=== PATIENT | male | born 1945 | race Caucasian/White ===

== ENCOUNTER 2018-04-05 05:58 | Inpatient (IN) | payer MEDICARE, MEDICAID ==
[2018-04-05] VITALS (15 sets, daily range): BP systolic 113–154; BP diastolic 62–90
[~2018-04-05] VITALS: Ht 182.9 cm; Wt 86.3 kg
--- OUTSIDE RECORDS SUMMARY | 2018-04-05 07:54 | XMS REPORT ---
Author Author SWAPNA SCHMIDT Organization [facility] Address [address] [place] [address] Care Team Providers Care Audio Experience Expert Name Role Phone SWAPNA SCHMIDT Unavailable PROBLEMS Unknown Problems ALLERGIES No Known Allergies ENCOUNTERS Encounter Location Date Diagnosis [facility] [id number] [place] [phone] Nov, Dental examination Z01.20 ; Periodontitis K05.30 ; Encounter for prophylactic administration of fluoride Z29.3 and Caries K02.9 [facility] [id number] [place] [phone] Jun, Dental examination Z01.20 [facility] [id number] [place] [address] [phone] Jan, Encounter for dental examination Z01.20 [facility] [id number] [place] [address] [phone] Sep, Dental examination V72.2 IMMUNIZATIONS No Known Immunizations SOCIAL HISTORY Never Assessed REASON FOR VISIT Establish Care PLAN OF CARE Activity Details Follow Up First Available Reason:Restorative VITAL SIGNS Heart Rate 51 bpm 2017-12-25 Blood pressure systolic 131 mmHg 2017-12-25 Blood pressure diastolic 65 mmHg 2017-12-25 MEDICATIONS Medication Instructions Dosage Frequency Start Date End Date Duration Status Terbinafine HCl 250 MG Orally Once a day 1 tablet 24h Not-Taking Spironolactone 25 MG Orally Twice a day 1 tablet 12h Active Propranolol HCl 20 MG Orally Twice a day 1 tablet 12h Active Docusate Sodium Active Triamterene 50 MG Orally Once a day 1 capsule 24h Not-Taking Ropinirole HCl Active Phenytoin Active Loratadine Allergy Relief 10 MG Orally Once a day 1 tablet on the tongue and allow to dissolve 24h Active Spironolactone Active RESULTS No Results PROCEDURES Procedure Date Ordered Result Body Site PERIODIC ORAL EXAMINATION Dec 25, 2017 INTRAORL-PERIAPICAL 1 FILM 38095 Dec 25, 2017 INTRAORL-PERIAPICAL EA ADD FILM Dec 25, 2017 INTRAORL-PERIAPICAL EA ADD FILM Dec 25, 2017 Periodontal maint procedures Dec 25, 2017 BITEWINGS - FOUR FILMS Dec 25, 2017 INSTRUCTIONS MEDICATIONS ADMINISTERED No Known Medications MEDICAL (GENERAL) HISTORY Type Description Date Medical History High Blood Pressure Medical History Back Trouble Medical History Leg Cramps Surgical History Back Surgery 08/2013 Hospitalization History Hospitalization for surgery only
--- OUTSIDE RECORDS SUMMARY | 2018-04-05 07:55 | XMS REPORT ---
Author Author SWAPNA SCHMIDT eClinicalWorks Address Unknown Phone Unavailable Care Team Providers Care Fisher Trot Line Name Role Phone SWAPNA SCHMIDT CP Unavailable Allergies, Adverse Reactions, Alerts Substance Reaction Event Type N.K.D.A. Info Not Available Non Drug Allergy Problems Problem Type Condition Code Onset Dates Condition Status Assessment Encounter for dental examination Z01.20 Active Problem Encounter for dental examination Z01.20 Active Medications Medication Code System Code Instructions Start Date End Date Status Dosage Propranolol HCl [facility] [address]-20 20 MG Orally Twice a day [address] [facility] [address]-87 25 MG Orally Twice a day [address] [facility] [address]-89 50 MG Orally Once a day 1 capsule [address]ine Allergy Relief [facility] [address] 10 MG Orally Once a day 1 tablet on the tongue and allow to dissolve Terbinafine HCl [facility] [address]-36 250 MG Orally Once a day 1 tablet Procedures Procedure Coding System Code Date Periodontal maint procedures CPT-4 D4910 Feb 20, 2015 TOPICAL FLUORIDE VARNISH CPT-4 D1206 Feb 20, 2015 PERIODIC ORAL EXAMINATION CPT-4 D0120 Feb 20, 2015 Vital Signs Date/Time: Feb 20, 2015 Blood Pressure Diastolic 70 mmHg Blood Pressure Systolic 140 mmHg Cardiac Monitoring Heart Rate 48 bpm Results No Known Results Summary Purpose eClinicalWorks Submission
[2018-04-05] MEDS ORDERED: MILK OF MAGNESIA 400 MG/5 ML 30 ML UDC PO PRN (08:45)
[2018-04-05] MEDS ORDERED: ACETAMINOPHEN 500 MG TAB (TYLENOL) PO PRN (08:45)
[2018-04-05] MEDS ORDERED: ANTACID SUSP 30 ML UDC (MYLANTA) PO PRN (08:45)
[2018-04-05] MEDS ORDERED: ONDANSETRON 4 MG/2 ML (SDV) Z0FRAN IV PRN (08:45)
[2018-04-05] MEDS ORDERED: VANCOMYCIN INJECTION 0.1 MG in NS (IVPB) 250 ML IV SCH (08:45)
[2018-04-05] MEDS ORDERED: PIPERACILLIN/TAZO 4.5 GM/NS 100 ML IV NR ×2 (09:00)
[2018-04-05] MEDS ORDERED: CATHETER FLUSH 10 ML SYR IV PRN (09:00)
[2018-04-05] MEDS ORDERED: ACETAMINOPHEN 325 MG TABLET PO PRN (09:00)
[2018-04-05 09:43] LABS: BUN/CREATININE RATIO 42; CALCIUM 9.2 MG/DL (8.5-10.1); CARBON DIOXIDE 23 MMOL/L (21-32); CHLORIDE 104 MMOL/L (98-107); CREATININE SERUM 1.08 MG/DL (0.60-1.30); GFR ESTIMATED > 60; GLUCOSE 126 MG/DL (70-105); POTASSIUM 4.3 MMOL/L (3.6-5.0); SODIUM 137 MMOL/L (135-145)
--- NOTE | 2018-04-05 09:54 | NUR ---
CR 1.08; CR CR > 60; WT 87 KG; VANCO 1500 MG IV BOLUS THEN 1000 MG IV Q12H; TROUGH AFTER 3RD DOSE
[2018-04-05] MEDS ORDERED: VANCOMYCIN 1500 MG/NS 500 ML IVPB IV NR ×2 (10:00)
[2018-04-05] MEDS ORDERED: RT-ALBUTEROL/IPRATROPIUM 3 ML (DUONEB) VIAL INH PRN (10:00)
--- NOTE | 2018-04-05 12:51 | History & Physical-Hospitalist ---
History of Present Illness HPI/Chief Complaint CC: Altered mental status with increased secretions with pneumonia HPI: This is a 72-year-old white male with a very complicated recent medical history that includes a seizure then had altered mental status and encephalopathy transferred to [place] in [facility] and diagnosed with an encephalopathy that required 6 weeks of medical care in the hospital with feeding tube placement and subsequent intermediate placement 2 days ago. He began having hypoxemia and increased secretions sent to [place] emergency ER and was found to have pneumonia facility acquired. Patient is currently sleeping soundly but cannot really carry on any type of conversation when he is awake and alert. Sister is power of contracts attorney and she is not at the bedside at this current time. Patient needs to be DO NOT RESUSCITATE and hospice candidate and or transferred to some sort of long-term care facility instead of just a intermediate. Source: RN/ Exam Limitations: clinical condition Date Seen 04/05/18 Time Seen by a Provider: 12:00 Attending Physician Richa Mcfarlane MD PCP Sheldon Lundberg MD Referring Physician Date of Admission Apr 05, 2018 at 07:20 Home Medications & Allergies Home Medications Reviewed patient Home Medication Reconciliation performed by pharmacy medication reconciliations dietetic technician and/or nursing. Patients Allergies have been reviewed. Allergies Allergies Coded Allergies No Known Drug Allergies (Unverified04/05/18) Past Gqjvtiu-Ookofz-Ogbacp Hx Past Med/Social Hx: Reviewed Nursing Past Med/Soc Hx, Reviewed and Corrections made Patient Social History Alcohol Use: Denies Use Recreational Drug Use: No Smoking Status: Former Smoker Former Smoker, Quit: Apr 05, 1980 Type Used: Cigarettes, Pipe Physical Abuse Screen: No Sexual Abuse: No Recent Foreign Travel: No Contact w/other who traveled: No Recent Hopitalizations: Yes Seasonal Allergies Seasonal Allergies: No Past Medical History Respiratory: Pneumonia Neurological: Seizure Disorder, Traumatic Brain Injury HEENT: Cataract History of Blood Disorders: No Review of Systems ROS-Unable to Obtain: Unable to ascertain Constitutional: see HPI Physical Exam Physical Exam Vital Signs Vital Signs - First Documented 04/05/18 04/05/18 07:20 10:00 Temp 98.5 Pulse 80 Resp 17 B/P (MAP) 138/88 (105) Pulse Ox 97 O2 Delivery Nasal Cannula O2 Flow Rate 4.00 FiO2 28 Capillary Refill : Height, Weight, BMI Height: 6'0.00" Weight: 192lbs. 9.0oz. 87.982018ob; 26.1 BMI Method: General Appearance: No Apparent Distress, WD/WN, Chronically ill, Other ( Sleeping and semi-unresponsive) Eyes: Bilateral Eye Normal Inspection, Bilateral Eye PERRL Respiratory: No Accessory Muscle Use, No Respiratory Distress, Crackles, Decreased Breath Sounds, Wheezing Cardiovascular: Regular Rate, Rhythm, No Edema, No Gallop, No JVD, No Murmur, Normal Peripheral Pulses Gastrointestinal: Normal Bowel Sounds, No Organomegaly, No Pulsatile Mass, Soft Back: Normal Inspection Extremity: Normal Capillary Refill, Normal Inspection, Non Tender, No Calf Tenderness, No Pedal Edema Skin: Normal Color, Warm/Dry Lymphatic: No Adenopathy Results Results/Procedures Labs Laboratory Tests 04/05/18 09:05 Patient resulted labs reviewed. Assessment/Plan Admission Diagnosis Assessment: Facility acquired pneumonia Encephalopathy with profound residual disability Feeding tube status Seizure disorder Plan: Antibiotics Neb treatments Oxygen Pulmonology evaluation May need bronchoscopy May need long-term care facility Recovery potential bleak Admission Status: Inpatient Order (span 2 midnights) Reason for Inpatient Admission: Severe encephalopathy with facility acquired pneumonia will require 3 days Diagnosis/Problems Diagnosis/Problems (1) Pneumonia Status: Acute Qualifiers: Pneumonia type: due to unspecified organism Laterality: unspecified laterality Lung location: unspecified part of lung Qualified Codes: J18.9 - Pneumonia, unspecified organism (2) Hypoxia Status: Acute (3) PEG (percutaneous endoscopic gastrostomy) status Status: Chronic (4) Encephalopathy chronic Status: Chronic (5) Seizure disorder Status: Chronic Clinical Quality Measures DVT/VTE Risk/Contraindication: Risk Factor Score Per Nursin RFS Level Per Nursing on Admit: 4+=Very High ADARSH MONTANO DO Apr 05, 2018 12:50
[2018-04-05] MEDS ORDERED: BISA10SU58 RC (13:08)
[2018-04-05] MEDS ORDERED: BRIM5DRO OP (13:08)
[2018-04-05] MEDS ORDERED: PHEN125O PO (13:08)
[2018-04-05] MEDS ORDERED: POLY17PO6 PO (13:08)
[2018-04-05] MEDS ORDERED: ATOR40TA PO (13:08)
[2018-04-05] MEDS ORDERED: ACET160L29 PO (13:08)
[2018-04-05] MEDS ORDERED: FAMO-119 PO (13:08)
[2018-04-05] MEDS ORDERED: ASPI-999 PO (13:08)
[2018-04-05] MEDS ORDERED: LATA2.5D19 OP (13:08)
[2018-04-05] MEDS ORDERED: GUAI100L13 PO (13:08)
[2018-04-05] MEDS ORDERED: IPRA3AMP31 IH (13:08)
[2018-04-05] MEDS ORDERED: CATHETER FLUSH 10 ML SYR IV SCH (14:00)
[2018-04-05] MEDS: RT-ALBUTEROL/IPRATROPIUM 3 ML (DUONEB) VIAL INH SCH ×2 (14:01→18:40)
[2018-04-05] MEDS ORDERED: PIPERACILLIN SODIUM/TAZOBACTAM 4.5 GM in NS (IVPB) 100 ML IV SCH (15:00)
--- NOTE | 2018-04-05 17:56 | Pulmonary Consultation ---
History of Present Illness History of Present Illness Date of Consultation 04/05/18 17:51 Date of Admission Allergies and Home Medications Allergies Coded Allergies: No Known Drug Allergies (Unverified , 04/05/18) Home Medications Acetaminophen 160 Mg/5 Ml Liquid, 650 MG PO Q6H, (Reported) Aspirin 81 Mg Tab.chew, 324 MG PO DAILY, (Reported) Atorvastatin Calcium 40 Mg Tablet, 40 MG PO HS, (Reported) Bisacodyl 10 Mg Supp.rect, 10 MG RC DAILY, (Reported) Brimonidine Tartrate/Timolol 5 Ml Drops, 5 ML OP BID, (Reported) Famotidine 20 Mg Tablet, 20 MG PO DAILY, (Reported) Guaifenesin 100 Mg/5 Ml Liquid, 100 MG PO Q6H, (Reported) Ipratropium/Albuterol Sulfate 3 Ml Ampul.neb, 3 ML IH Q4H PRN for SHORTNESS OF BREATH, (Reported) Latanoprost 2.5 Ml Drops, 2.5 ML OP HS, (Reported) Phenytoin 125 Mg/5 Ml Oral.susp, 150 MG PO Q8H, (Reported) Polyethylene Glycol 3350 17 Gm Powd.pack, 17 GM PO DAILY PRN for CONSTIPATION- 1ST LINE, (Reported) Past Jwjndkl-Zhmjvx-Tvdjlv Hx Past Med/Social Hx: Reviewed Nursing Past Med/Soc Hx, Reviewed and Corrections made Patient Social History Alcohol Use: Denies Use Recreational Drug Use: No Smoking Status: Former Smoker Type Used: Cigarettes, Pipe Former Smoker, Quit: Apr 05, 1980 Recent Foreign Travel: No Contact w/Someone Who Travel: No Recent Hopitalizations: Yes Seasonal Allergies Seasonal Allergies: No Past Medical History Respiratory: No (FORMER SMOKER, QUIT 1980) Cardiac: Yes Neurological: Yes Seizure Disorder, Traumatic Brain Injury Genitourinary: No Gastrointestinal: No Endocrine: No HEENT: Yes Cataract Cancer: Yes Psychosocial: No Integumentary: No Blood Disorders: No Sepsis Event Evaluation Height, Weight, BMI Height: 6'0.00" Weight: 192lbs. 9.0oz. 87.556360dr; 26.1 BMI Method: Exam Exam Vital Signs Date Time Temp Pulse Resp B/P (MAP) Pulse Ox O2 Delivery O2 Flow Rate FiO2 04/05/18 15:00 71 17 124/62 (82) 95 Nasal Cannula 2.00 04/05/18 14:02 98 Nasal Cannula 2.00 04/05/18 14:00 68 18 113/67 (82) 99 Nasal Cannula 2.00 04/05/18 13:00 73 20 124/71 (88) 99 Nasal Cannula 2.00 04/05/18 12:59 75 04/05/18 12:00 Nasal Cannula 7.00 04/05/18 12:00 82 17 128/70 (89) 95 Nasal Cannula 2.00 04/05/18 12:00 98.5 04/05/18 11:00 82 20 143/79 (100) 93 Nasal Cannula 2.00 04/05/18 10:00 82 92 28 04/05/18 10:00 82 21 140/80 (100) 92 Nasal Cannula 2.00 04/05/18 09:00 81 33 154/73 (100) 93 Nasal Cannula 4.00 04/05/18 08:00 81 27 134/68 (90) 98 Nasal Cannula 4.00 04/05/18 08:00 Nasal Cannula 4.00 04/05/18 07:45 79 36 140/71 (94) 97 Nasal Cannula 4.00 04/05/18 07:30 80 19 138/77 (97) 97 Nasal Cannula 4.00 04/05/18 07:26 80 04/05/18 07:20 98.5 04/05/18 07:20 80 17 138/88 (105) 97 Nasal Cannula 4.00 Height & Weight Height: 6'0.00" Weight: 192lbs. 9.0oz. 87.877982jv; 26.1 BMI Method: General Appearance: No Apparent Distress, WD/WN, Chronically ill, Other ( Sleeping and semi-unresponsive) Respiratory: No Accessory Muscle Use, No Respiratory Distress, Crackles, Decreased Breath Sounds, Wheezing Cardiovascular: Regular Rate, Rhythm, No Edema, No Gallop, No JVD, No Murmur, Normal Peripheral Pulses Extremity: Normal Capillary Refill, Normal Inspection, Non Tender, No Calf Tenderness, No Pedal Edema Skin: Normal Color, Warm/Dry Lymphatic: No Adenopathy Results Lab Laboratory Tests 04/05/18 09:05 Assessment/Plan Assessment/Plan Pneumonia probable aspiration pneumonia. PT can not protect his airway secondary to recent CVA -Zosyn and vanco Acute respiratory failure secondary to Hypoxia -Oxygen Hx of CVA s/p PEG tube Debility/dysphonia Chronic encephalopathy hx of seizures. After discussion with sister who is DOPA and explaining all options from full code to comfort care. She has decided to make him comfort care only. She states family has already been talking about making him hospice care secondary to severe debility s/p CVA. LACEY CAO DO Apr 05, 2018 17:55
[2018-04-05] MEDS ORDERED: GLYCOPYRROLATE 0.2 MG/ML (ROBINUL) 2 ML VIAL IV PRN (18:00)
[2018-04-05] MEDS ORDERED: ONDANSETRON 4 MG/2 ML (SDV) Z0FRAN IVP PRN (18:00)
[2018-04-05] MEDS ORDERED: SALIVA STIMULANT MOUTH SPRAY (BIOTENE) 1.5 OZ MM PRN (18:00)
[2018-04-05] MEDS ORDERED: ARTIFICAL TEARS 0.4 ML UNIT DOSE (REFRESH PLUS) OU PRN (18:00)
[2018-04-05] MEDS ORDERED: ATROPINE 1% OPHTHALMIC SOLN 2 ML SL PRN (18:00)
[2018-04-05] MEDS ORDERED: PROMETHAZINE INJ 25 MG/ML (PHENERGAN) AMP IVP PRN (18:00)
[2018-04-05] MEDS ORDERED: LORazepam INJ 2 MG/ML (ATIVAN) VIAL IVP PRN (18:45)
[2018-04-05] MEDS ORDERED: morphine INJ 4 MG/ML 1 ML (VIAL/SYRINGE) IVP PRN (18:45)
[2018-04-05] MEDS ORDERED: VANCOMYCIN 1 GM/NS 250 ML IVPB IV SCH ×2 (22:00)
--- NOTE | 2018-04-06 06:56 | Pulmonary Progress Note ---
Subjective Time Seen by a Provider: 06:56 Subjective/Events-last exam PT appears comfortable on MANAGER INSTRUMENTATION. Sepsis Event Evaluation Height, Weight, BMI Height: 6'0.00" Weight: 190lbs. 5.0oz. 86.557801mw; 26.1 BMI Method: Exam Exam Vital Signs Date Time Temp Pulse Resp B/P (MAP) Pulse Ox O2 Delivery O2 Flow Rate FiO2 04/06/18 06:28 Room Air 04/05/18 20:00 Room Air 04/05/18 20:00 75 18 139/90 (106) 88 Room Air 04/05/18 18:58 73 04/05/18 18:40 97 Nasal Cannula 2.00 04/05/18 18:00 73 24 149/80 (103) 97 Nasal Cannula 2.00 04/05/18 17:00 67 26 117/63 (81) 93 Nasal Cannula 2.00 04/05/18 16:00 Nasal Cannula 2.00 04/05/18 16:00 75 25 131/67 (88) 96 Nasal Cannula 2.00 04/05/18 15:00 71 17 124/62 (82) 95 Nasal Cannula 2.00 04/05/18 14:02 98 Nasal Cannula 2.00 04/05/18 14:00 68 18 113/67 (82) 99 Nasal Cannula 2.00 04/05/18 13:00 73 20 124/71 (88) 99 Nasal Cannula 2.00 04/05/18 12:59 75 04/05/18 12:00 Nasal Cannula 7.00 04/05/18 12:00 82 17 128/70 (89) 95 Nasal Cannula 2.00 04/05/18 12:00 98.5 04/05/18 11:00 82 20 143/79 (100) 93 Nasal Cannula 2.00 04/05/18 10:00 82 92 28 04/05/18 10:00 82 21 140/80 (100) 92 Nasal Cannula 2.00 04/05/18 09:00 81 33 154/73 (100) 93 Nasal Cannula 4.00 04/05/18 08:00 81 27 134/68 (90) 98 Nasal Cannula 4.00 04/05/18 08:00 Nasal Cannula 4.00 04/05/18 07:45 79 36 140/71 (94) 97 Nasal Cannula 4.00 04/05/18 07:30 80 19 138/77 (97) 97 Nasal Cannula 4.00 04/05/18 07:26 80 04/05/18 07:20 98.5 04/05/18 07:20 80 17 138/88 (105) 97 Nasal Cannula 4.00 I & O 04/06/18 06:59 Intake Total 0 ml Output Total 1215 ml Balance -1215 ml Height & Weight Height: 6'0.00" Weight: 190lbs. 5.0oz. 86.556784qh; 26.1 BMI Method: General Appearance: No Apparent Distress, WD/WN, Chronically ill, Other ( Sleeping and semi-unresponsive) Respiratory: No Accessory Muscle Use, No Respiratory Distress, Crackles, Decreased Breath Sounds, Wheezing Cardiovascular: Regular Rate, Rhythm, No Edema, No Gallop, No JVD, No Murmur, Normal Peripheral Pulses Extremity: Normal Capillary Refill, Normal Inspection, Non Tender, No Calf Tenderness, No Pedal Edema Skin: Normal Color, Warm/Dry Lymphatic: No Adenopathy Results Lab Laboratory Tests 04/05/18 09:05 Assessment/Plan Assessment/Plan Pneumonia probably aspiration acute respiratory failure with Hypoxia Hx of CVA s/p PEG tube Debility/dysphonia secondary to recent CVA Chronic encephalopathy hx of seizures. Pt is now comfort care per sister who is DOPA. PT appears very comfortable currently. Will transfer to 4th floor. LACEY CAO DO Apr 06, 2018 06:56
--- NOTE | 2018-04-06 07:13 | NUR ---
RECEIVED PATIENT SLEEPING COMFORTABLY WITH NO S/S OF DISTRESS. SAFETY PRECAUTIONS IN PLACE. MAINTAINING POC WITH COMFORT CARE MEASURES.
[2018-04-06] MEDS ORDERED: FLU QUADRIvalent (5+ YOA) 2018-2019 (AFLURIA) 0.5 ML IM ONE (10:45)
--- NOTE | 2018-04-06 11:05 | Progress Note-Hospitalist ---
Subjective HPI/CC On Admission Date Seen by Provider: Apr 06, 2018 Time Seen by Provider: 10:15 CC: Altered mental status with increased secretions with pneumonia HPI: This is a 72-year-old white male with a very complicated recent medical history that includes a seizure then had altered mental status and encephalopathy transferred to [place] in [facility] and diagnosed with an encephalopathy that required 6 weeks of medical care in the hospital with feeding tube placement and subsequent fci placement 2 days ago. He began having hypoxemia and increased secretions sent to [place] emergency ER and was found to have pneumonia facility acquired. Patient is currently sleeping soundly but cannot really carry on any type of conversation when he is awake and alert. Sister is power of art museum docent and she is not at the bedside at this current time. Patient needs to be DO NOT RESUSCITATE and hospice candidate and or transferred to some sort of long-term care facility instead of just a fci. Subjective/Events-last exam Patient now comfort care DO NOT RESUSCITATE Reasonable plan of care Palliative care nurse consulted for hospice enrollment and disposition Objective Exam Vital Signs Vital Signs Date Time Temp Pulse Resp B/P (MAP) Pulse Ox O2 Delivery O2 Flow Rate FiO2 04/06/18 06:28 Room Air 04/05/18 20:00 75 18 139/90 (106) 88 04/05/18 18:40 2.00 04/05/18 12:00 98.5 04/05/18 10:00 28 Capillary Refill : General Appearance: No Apparent Distress, WD/WN, Chronically ill, Other ( Unresponsive) Results/Procedures Lab Patient resulted labs reviewed. Assessment/Plan Assessment and Plan Assess & Plan/Chief Complaint Assessment: Comfort Care status for end-of-life care Facility acquired pneumonia Encephalopathy with profound residual disability Feeding tube status Seizure disorder Plan: Palliative care nurse for hospice arrangements and disposition Comfort Care protocol Diagnosis/Problems Diagnosis/Problems (1) Pneumonia Status: Acute Qualifiers: Pneumonia type: due to unspecified organism Laterality: unspecified laterality Lung location: unspecified part of lung Qualified Codes: J18.9 - Pneumonia, unspecified organism (2) Hypoxia Status: Acute (3) PEG (percutaneous endoscopic gastrostomy) status Status: Chronic (4) Encephalopathy chronic Status: Chronic (5) Seizure disorder Status: Chronic Clinical Quality Measures DVT/VTE Risk/Contraindication: Risk Factor Score Per Nursin RFS Level Per Nursing on Admit: 4+=Very High ADARSH MONTANO DO Apr 06, 2018 11:05
--- NOTE | 2018-04-06 11:15 | NUR ---
Pastoral Care Visit, pt resting, did not rouse.
[2018-04-06] MEDS ORDERED: MORP100S3 PEG (11:19)
[2018-04-06] MEDS ORDERED: LORA2ORA PO (11:19)
--- NOTE | 2018-04-06 12:14 | Discharge Summary-Hospitalist ---
Diagnosis/Chief Complaint Date of Admission Apr 05, 2018 at 07:20 Date of Discharge Discharge Date: Apr 06, 2018 Admission Diagnosis Assessment: Facility acquired pneumonia Encephalopathy with profound residual disability Feeding tube status Seizure disorder Plan: Antibiotics Neb treatments Oxygen Pulmonology evaluation May need bronchoscopy May need long-term care facility Recovery potential bleak Discharge Diagnosis (1) Pneumonia Status: Acute (2) Hypoxia Status: Acute (3) PEG (percutaneous endoscopic gastrostomy) status Status: Chronic (4) Encephalopathy chronic Status: Chronic (5) Seizure disorder Status: Chronic Discharge Summary Discharge Physical Exam Allergies: Coded Allergies: No Known Drug Allergies (Unverified , 04/05/18) Vitals & I&Os Vital Signs Date Time Temp Pulse Resp B/P (MAP) Pulse Ox O2 Delivery O2 Flow Rate FiO2 04/06/18 06:28 Room Air 04/05/18 20:00 75 18 139/90 (106) 88 04/05/18 18:40 2.00 04/05/18 12:00 98.5 04/05/18 10:00 28 General Appearance: No Apparent Distress, Other (Comatose) Hospital Course Hospital course: Patient had a very short hospital course after he was admitted from [place] emergency ER with facility acquired pneumonia 2 days after he arrived from a 6 week hospital course for encephalopathy of unknown source sustained after a seizure. Dr. Robles was consulted and everyone agreed with the no recovery potential he was placed DO NOT RESUSCITATE and signed up for hospice and discharged back to [facility] on hospice. Labs (last 24 hrs) Patient resulted labs reviewed. Discussion & Recommendations Discharge Planning: <30 minutes discharge planning Discharge Home Medications: Active Scripts Active Lorazepam Intensol (Lorazepam) 2 Mg/1 Ml Oral.conc 2 Mg PO Q2H PRN Morphine Sulfate Concentrate 20mg/ml (Morphine Sulfate) 100 Mg/5 Ml Solution 10 Mg PEG Q2H PRN Reported Acetaminophen 160 Mg/5 Ml Liquid 650 Mg PO Q6H Aspirin 81 Mg Tab.chew 324 Mg PO DAILY Miralax (Polyethylene Glycol 3350) 17 Gm Powd.pack 17 Gm PO DAILY PRN Dilantin-125 (Phenytoin) 125 Mg/5 Ml Oral.susp 150 Mg PO Q8H Xalatan (Latanoprost) 2.5 Ml Drops 2.5 Ml OP HS Iprat-Albut 0.5-3(2.5) mg/3 ml (Ipratropium/Albuterol Sulfate) 3 Ml Ampul.neb 3 Ml IH Q4H PRN Guaifenesin 100 Mg/5 Ml Liquid 100 Mg PO Q6H Pepcid (Famotidine) 20 Mg Tablet 20 Mg PO DAILY Dulcolax (Bisacodyl) 10 Mg Supp.rect 10 Mg RC DAILY Combigan Eye Drops (Brimonidine Tartrate/Timolol) 5 Ml Drops 5 Ml OP BID Lipitor (Atorvastatin Calcium) 40 Mg Tablet 40 Mg PO HS Instructions to patient/family Please see electronic discharge instructions given to patient. Clinical Quality Measures DVT/VTE Risk/Contraindication: Risk Factor Score Per Nursin RFS Level Per Nursing on Admit: 4+=Very High Problem Qualifiers (1) Pneumonia: Pneumonia type: due to unspecified organism Laterality: unspecified laterality Lung location: unspecified part of lung Qualified Codes: J18.9 - Pneumonia, unspecified organism ADARSH MONTANO DO Apr 06, 2018 12:14
--- NOTE | 2018-04-06 13:09 | NUR ---
CM DISCHARGE PLANNING: Patient is currently comfort care measures only. He is resting in bed with his eyes closed. Respirations shallow et unlabored. He doesn't not awaken to voice or touch. Spoke with patient's DPOA sister Brook Teran et she is in agreement to have [facility] moved back to [facility] with hospice in place. Hospice choices given to her via phone et she has elected [facility] as she had another family member that used them and she really liked them. Referral faxed to [facility]. Spoke to [facility] et they are able to take [facility] back today with hospice in place. Patient is non-responsive et will need non-emergent ambulance transport. Face sheet et form faxed to EMS. Updated the patient's primary care nurse et embossing unit operator that ambulance transport will need called when the nurse here is ready for discharge. Information placed in and on the red discharge packet. I also left phone numbers for [facility] et [facility] so that staff here can call and notify them when the ambulance picks up the patient to transport. F/U by talking with sister Brook again to let her know the plan of care for the patient. His goal is to be kept comfortable with medications available to help ensure his comfort. Also talked about the patient not receiving his peg tube feedings as this could cause additional discomfort to the patient since he is non-responsive. We then talked about oral care being performed Q2hr et PRN for comfort. She is in agreement with this POC et voiced appreciation for update. She denied any further needs or concerns at this time.
[2018-04-06] MEDS ORDERED: TROUGH ORDER-PHARMACY XX NR (21:00)
--- NOTE | 2018-04-10 11:41 | Physician Query Clarification ---
PQ-Conflicting Diagnosis Admission/Discharge Admission Date: Apr 05, 2018 at 07:20 Discharge Date: Apr 06, 2018 at 14:00 The medical record reflects the following clinical scenario: History/Risk Factors: Pneumonia, encephalopathy Clinical Findings: semiunresponsive, hypoxia, R 36, can't protect airway d/t recent CVA Treatment: IV Zosyn, IV vancomycin, oxygen Question: Do you agree with the impression of the aspiration pneumonia per Dr. Robles. Please document a response below. PHYSICIAN RESPONSE Do you agree w/Consulting Dx?: Yes In responding to this query, please exercise your independent professional judgment. The purpose of this communication is to more accurately reflect the complexity of your patients condition. The fact that a question is asked does not imply that any particular answer is desired or expected. Thank you for your timely response to this clarification. Requestors name: Marlon THIS PHYSICIAN QUERY FORM IS A PERMANENT PART OF THE MEDICAL RECORD MARLON ORTEGA Apr 10, 2018 11:41 ADARSH MONTANO DO Apr 10, 2018 12:47
--- NOTE | 2018-04-10 11:45 | Physician Query Clarification ---
PQ-Present on Admission Admission/Discharge Admission Date: Apr 05, 2018 at 07:20 Discharge Date: Apr 06, 2018 at 14:00 Question: acute respiratory failure secondary to hypoxia was documented in Dr. Robles's consult under assessment/plan. Can you specify if this condition was present on admission? Please document a response below. PHYSICIAN RESPONSE Condition was Present on Admit: Yes In responding to this query, please exercise your independent professional judgment. The purpose of this communication is to more accurately reflect the complexity of your patients condition. The fact that a question is asked does not imply that any particular answer is desired or expected. Thank you for your timely response to this clarification. Requestors name: Marlon THIS PHYSICIAN QUERY FORM IS A PERMANENT PART OF THE MEDICAL RECORD MARLON ORTEGA Apr 10, 2018 11:45 ADARSH MONTANO DO Apr 10, 2018 12:47
== END 2018-04-06 14:00 | disposition hospice, inpatient (51) | DRG 189 ==
LOC: ICU 07:20
PROVIDERS: ADMIT Family Medicine; ATTEND Family Medicine
DX: J96.01 Acute respiratory failure with hypoxia (principal); J69.0 Pneumonitis due to inhalation of food and vomit; G93.40 Encephalopathy, unspecified; G40.909 Epilepsy, unspecified, not intractable, without status epilepticus; R49.0 Dysphonia; Z66 Do not resuscitate; Z51.5 Encounter for palliative care; Z86.73 Personal history of transient ischemic attack (TIA), and cerebral infarction without residual deficits; Z93.1 Gastrostomy status; Z87.891 Personal history of nicotine dependence
CPT/HCPCS: 36415; 80048; 87081; 94640; 94799